=== PATIENT | female | born 1960 | race African-American/Black ===

== ENCOUNTER 2021-01-29 16:08 | Inpatient (IN) ==
[2021-01-29 20:22] LABS: Basophils % 0.5 % (0.0-0.8); Eosinophils % 0.3 % (0.00-10.9); Hematocrit 41.5 VOL% (35.7-47.0); Hemoglobin 13.2 GM/DL (12.0-16.0); Immature Granulocytes % 0.3 %; Immature Granulocytes Absolute 0.02 #; Lymphocytes % 15.6 % (21.3-54.2); Mean Corpuscular HGB Conc 31.8 GM/DL (32-36); Mean Corpuscular Volume 86.1 FL (87-102); Mean Platelet Volume 10.7 FL (9.6-12.0); Monocytes % 5.9 % (1.7-12.7); Neutrophils % 77.4 % (38.7-73.9); Platelet Count 350 T/CUMM (130-400); Red Blood Count 4.82 MC/CUMM (3.8-5.5); Red Cell Distribution Width 14.9 % (9.3-17.3); White Blood Count 6.2 T/CUMM (4-12)
[2021-01-29 20:33] LABS: PT Patient Result 11.6 SECS (10.5-12.0)
[2021-01-29] MEDS ORDERED: FUROSEMIDE 40 MG/4 ML VIAL IV STA (20:43)
[2021-01-29 20:44] LABS: Albumin 2.9 G/DL (3.4-5.0); Bilirubin,Total 0.7 MG/DL (0.20-1.00); Calcium 9.2 MG/DL (8.5-10.1); Osmolality,Calculated 301.1 MOS/KG (273-304); Potassium 4.7 MMOL/L (3.5-5.1); Total Protein 5.6 G/DL (6.4-8.2)
[2021-01-29] MEDS ORDERED: FUROSEMIDE 100 MG/10 ML VIAL ONE (20:44)
[2021-01-29] MEDS ORDERED: hydrALAZINE 20 MG/1 ML VIAL ONE (21:41)
[2021-01-29] MEDS ORDERED: hydrALAZINE 20 MG/1 ML VIAL IV STA (21:42)
[2021-01-29] MEDS ORDERED: POTASSIUM CHLORIDE RIDER 10 MEQ/100 ML PREMIX IV PRN (22:51)
[2021-01-29] MEDS ORDERED: MAGNESIUM SULF RIDER 2 GM/50 ML PREMIX IV PRN (22:51)
[2021-01-29] MEDS ORDERED: GLUCAGON 1 MG VIAL IM PRN (22:51)
[2021-01-29] MEDS ORDERED: SIMETHICONE CHEW 125 MG TABLET PO PRN (22:51)
[2021-01-29] MEDS ORDERED: MAGNESIUM SULF RIDER 4 GM/100 ML PREMIX IV PRN (22:51)
[2021-01-29] MEDS ORDERED: ONDANSETRON 4 MG/2 ML VIAL IV PRN (22:51)
[2021-01-29] MEDS ORDERED: POTASSIUM CHLORIDE RIDER 20 MEQ/100 ML PREMIX IV PRN (22:51)
[2021-01-29] MEDS ORDERED: ACETAMINOPHEN 325 MG TABLET PO PRN (22:51)
[2021-01-29] MEDS ORDERED: hydrALAZINE 20 MG/1 ML VIAL IV PRN (22:51)
[2021-01-29] MEDS ORDERED: ENOXAPARIN 40 MG/0.4 ML SYRINGE SUBCUT SCH (23:00)
[2021-01-29] MEDS ORDERED: DEXTROSE 50% 25 GM/50 ML SYRINGE IV PRN (23:17)
[2021-01-30] MEDS: LOSARTAN 25 MG TABLET PO SCH ×3 (02:57→21:36)
[2021-01-30] MEDS: carvediloL 3.125 MG TABLET PO SCH ×3 (02:57→21:36)
[2021-01-30 06:04] LABS: Basophils % 0.3 % (0.0-0.8); Eosinophils % 0.2 % (0.00-10.9); Hematocrit 39.5 VOL% (35.7-47.0); Hemoglobin 12.8 GM/DL (12.0-16.0); Immature Granulocytes % 0.5 %; Immature Granulocytes Absolute 0.03 #; Lymphocytes # 1.2 10*3/uL (1.4-4.0); Lymphocytes % 17.8 % (21.3-54.2); Mean Corpuscular HGB Conc 32.4 GM/DL (32-36); Mean Corpuscular Volume 84.9 FL (87-102); Mean Platelet Volume 10.7 FL (9.6-12.0); Monocytes % 5.8 % (1.7-12.7); Neutrophils % 75.4 % (38.7-73.9); Platelet Count 306 T/CUMM (130-400); Red Blood Count 4.65 MC/CUMM (3.8-5.5); Red Cell Distribution Width 14.8 % (9.3-17.3); White Blood Count 6.6 T/CUMM (4-12)
[2021-01-30 06:32] LABS: Albumin 2.7 G/DL (3.4-5.0); Bilirubin,Total 0.8 MG/DL (0.20-1.00); Calcium 8.3 MG/DL (8.5-10.1); Potassium 3.6 MMOL/L (3.5-5.1); Risk Ratio 2.9; Thyroid Stimulating Hormone 1.13 uIU/ml (0.358-3.74); Total Protein 5.3 G/DL (6.4-8.2); VLDL Cholesterol 11.2 MG/DL
[2021-01-30] MEDS ORDERED: ASPIRIN CHEW 81 MG TABLET PO ONE (06:39)
[2021-01-30 07:19] LABS: Hepatitis B Core IgM Quant 0.15 Index; Hepatitis B Surface Ag Quant < 0.10 Index; Hepatitis B Surface Ag Result Non-Reactive (NonReactive); Hepatitis C Virus Ab Quant < 0.02 Index; Hepatitis C Virus Ab Result Non-Reactive (NonReactive)
[2021-01-30] MEDS: INSULIN REGULAR 100 UNIT/ML SUBCUT SCH ×4 (07:49→21:39)
[2021-01-30] MEDS ORDERED: ASPIRIN 325 MG TABLET ONE (08:12)
[2021-01-30] MEDS: FUROSEMIDE 40 MG/4 ML VIAL IV SCH ×2 (08:21→16:46)
[2021-01-30] MEDS ORDERED: MAGNESIUM SULF RIDER 4 GM/100 ML PREMIX IV PRN (08:31)
[2021-01-30] MEDS ORDERED: MAGNESIUM SULF RIDER 2 GM/50 ML PREMIX IV PRN (08:31)
[2021-01-30] MEDS ORDERED: lisinopriL 2.5 MG TABLET PO SCH (09:00)
[2021-01-30] MEDS: PANTOPRAZOLE 40 MG TABLET PO SCH (09:09)
[2021-01-30 09:25] LABS: Bilirubin,Urine Negative (Negative); Blood, Urine Negative (Negative); Glucose,Urine (UA) >=500 mg/dL (Negative); Ketones,Urine 5 mg/dL (Negative); Mucus,Urine Occasional /LPF (Occasional); Nitrite,Urine Negative (Negative); Protein,Urine Negative; RBC,Urine 1 /HPF (0-4); Urine Appearance CLEAR (Clear); Urine Color Yellow (Yellow); Urine Specific Gravity 1.011 (1.001-1.035); Urine Urobilinogen < 2.0 EU/DL (<2.0)
[2021-01-30] MEDS ORDERED: DEXTROSE 50% 25 GM/50 ML SYRINGE IV PRN (10:58)
[2021-01-30 12:00] LABS: CKMB % 3.2 %
[2021-01-30 12:14] LABS: High Sensitive Troponin I* 3869.8 ng/L (0-54)
[2021-01-30] MEDS: ENOXAPARIN 60 MG/0.6 ML SYRINGE SUBCUT SCH (12:27)
[2021-01-30 14:18] LABS: High Sensitive Troponin I* 4059.2 ng/L (0-54)
[2021-01-30] MEDS: INSULIN GLARGINE 100 UNIT/ML SUBCUT SCH (21:39)
[2021-01-31] MEDS: ENOXAPARIN 60 MG/0.6 ML SYRINGE SUBCUT SCH ×2 (00:43→11:56)
[2021-01-31 05:51] LABS: % Iron Saturation 13.1 % (18-50)
[2021-01-31 05:53] LABS: Albumin 2.3 G/DL (3.4-5.0); Bilirubin,Total 2.8 MG/DL (0.20-1.00); Calcium 8.7 MG/DL (8.5-10.1); Potassium 3.2 MMOL/L (3.5-5.1); Total Protein 5.2 G/DL (6.4-8.2)
[2021-01-31 05:54] LABS: Albumin 2.3 G/DL (3.4-5.0); Bilirubin,Direct 0.21 MG/DL (0.0-0.20); Bilirubin,Indirect 0.9 MG/DL (0.0-1.0); Bilirubin,Total 1.1 MG/DL (0.20-1.00); Total Protein 5.3 G/DL (6.4-8.2)
[2021-01-31] MEDS ORDERED: DEXTROSE 50% 25 GM/50 ML SYRINGE IV PRN (06:30)
[2021-01-31] MEDS ORDERED: MAGNESIUM SULF RIDER 2 GM/50 ML PREMIX IV ONE (07:24)
[2021-01-31] MEDS ORDERED: POTASSIUM CHLORIDE 20 MEQ TABLET PO ONE (07:27)
[2021-01-31] MEDS: INSULIN REGULAR 100 UNIT/ML SUBCUT SCH ×4 (07:43→21:53)
[2021-01-31] MEDS: ASPIRIN EC 325 MG TABLET PO SCH (08:50)
[2021-01-31] MEDS: PANTOPRAZOLE 40 MG TABLET PO SCH (08:50)
[2021-01-31] MEDS: carvediloL 3.125 MG TABLET PO SCH ×2 (08:51→21:53)
[2021-01-31] MEDS: LOSARTAN 25 MG TABLET PO SCH ×2 (08:51→21:53)
[2021-01-31] MEDS: FUROSEMIDE 40 MG/4 ML VIAL IV SCH ×2 (08:59→16:59)
[2021-02-01] MEDS: ENOXAPARIN 60 MG/0.6 ML SYRINGE SUBCUT SCH (00:56)
[2021-02-01] MEDS: INSULIN GLARGINE 100 UNIT/ML SUBCUT SCH ×2 (00:58→21:03)
[2021-02-01 05:36] LABS: Basophils % 0.4 % (0.0-0.8); Eosinophils # 0.3 10*3/uL (0.0-0.87); Eosinophils % 3.6 % (0.00-10.9); Hematocrit 41.4 VOL% (35.7-47.0); Hemoglobin 13.4 GM/DL (12.0-16.0); Immature Granulocytes % 0.3 %; Immature Granulocytes Absolute 0.02 #; Lymphocytes # 1.5 10*3/uL (1.4-4.0); Lymphocytes % 20.1 % (21.3-54.2); Mean Corpuscular HGB Conc 32.4 GM/DL (32-36); Mean Corpuscular Volume 84.8 FL (87-102); Mean Platelet Volume 10.2 FL (9.6-12.0); Monocytes % 10.4 % (1.7-12.7); Neutrophils % 65.2 % (38.7-73.9); Platelet Count 349 T/CUMM (130-400); Red Blood Count 4.88 MC/CUMM (3.8-5.5); Red Cell Distribution Width 14.4 % (9.3-17.3); White Blood Count 7.2 T/CUMM (4-12)
[2021-02-01 05:59] LABS: Calcium 8.2 MG/DL (8.5-10.1); Osmolality,Calculated 281.3 MOS/KG (273-304)
[2021-02-01 06:03] LABS: Albumin 2.3 G/DL (3.4-5.0); Bilirubin,Direct 0.13 MG/DL (0.0-0.20); Bilirubin,Indirect 1.7 MG/DL (0.0-1.0); Bilirubin,Total 1.8 MG/DL (0.20-1.00); Total Protein 5.2 G/DL (6.4-8.2)
[2021-02-01] MEDS: INSULIN REGULAR 100 UNIT/ML SUBCUT SCH ×4 (07:42→21:03)
[2021-02-01] MEDS ORDERED: POTASSIUM CHLORIDE 20 MEQ TABLET PO ONE (07:58)
[2021-02-01] MEDS ORDERED: diphenhydrAMINE CAP 25 MG CAPSULE PO ONE (09:09)
[2021-02-01] MEDS ORDERED: DIAZEPAM 5 MG TABLET PO ONE (09:09)
[2021-02-01] MEDS ORDERED: LIDOCAINE 1% 20 ML VIAL ONE (09:14)
[2021-02-01] MEDS ORDERED: diphenhydrAMINE CAP 25 MG CAPSULE ONE (09:18)
[2021-02-01] MEDS ORDERED: DIAZEPAM 5 MG TABLET ONE (09:18)
[2021-02-01] MEDS: PANTOPRAZOLE 40 MG TABLET PO SCH (09:20)
[2021-02-01] MEDS: LOSARTAN 25 MG TABLET PO SCH (09:22)
[2021-02-01] MEDS: carvediloL 3.125 MG TABLET PO SCH ×2 (09:22→21:02)
[2021-02-01] MEDS: ASPIRIN EC 325 MG TABLET PO SCH (09:22)
[2021-02-01] MEDS: MULTIVITAMIN (CENTRUM) TABLET PO SCH (09:22)
[2021-02-01] MEDS ORDERED: VERAPAMIL 5 MG/2 ML VIAL ONE (09:24)
[2021-02-01] MEDS ORDERED: MIDAZOLAM 2 MG/2 ML VIAL ONE (09:24)
[2021-02-01] MEDS ORDERED: NITROGLYCERIN DRIP 50 MG/250 ML BOTTLE IV ONE (09:24)
[2021-02-01] MEDS ORDERED: HYDROmorphone 2 MG/1 ML VIAL ONE (09:24)
[2021-02-01] MEDS ORDERED: SODIUM CHLORIDE 0.9% 1,000 ML IV SCH (09:30)
[2021-02-01] MEDS: FUROSEMIDE 40 MG/4 ML VIAL IV SCH (11:36)
[2021-02-01] MEDS: ENOXAPARIN 30 MG/0.3 ML SYRINGE SUBCUT SCH (11:42)
[2021-02-01] MEDS: FUROSEMIDE 40 MG TABLET PO SCH (16:36)
[2021-02-01] MEDS: SACUBITRIL/VALSARTAN 49-51 MG TABLET PO SCH (21:02)
[2021-02-02 05:02] LABS: Basophils % 0.3 % (0.0-0.8); Eosinophils # 0.2 10*3/uL (0.0-0.87); Eosinophils % 3.3 % (0.00-10.9); Hemoglobin 13.3 GM/DL (12.0-16.0); Immature Granulocytes % 0.3 %; Immature Granulocytes Absolute 0.02 #; Lymphocytes # 1.4 10*3/uL (1.4-4.0); Mean Corpuscular HGB Conc 31.7 GM/DL (32-36); Mean Platelet Volume 10.6 FL (9.6-12.0); Monocytes % 12.4 % (1.7-12.7); Neutrophils % 64.7 % (38.7-73.9); Platelet Count 370 T/CUMM (130-400); Red Blood Count 4.94 MC/CUMM (3.8-5.5); Red Cell Distribution Width 14.6 % (9.3-17.3); White Blood Count 7.3 T/CUMM (4-12)
[2021-02-02 05:28] LABS: Calcium 8.4 MG/DL (8.5-10.1); Osmolality,Calculated 281.3 MOS/KG (273-304); Potassium 3.3 MMOL/L (3.5-5.1)
[2021-02-02 05:31] LABS: Albumin 2.3 G/DL (3.4-5.0); Bilirubin,Direct 0.15 MG/DL (0.0-0.20); Bilirubin,Indirect 0.3 MG/DL (0.0-1.0); Bilirubin,Total 0.4 MG/DL (0.20-1.00); Total Protein 5.5 G/DL (6.4-8.2)
[2021-02-02] MEDS ORDERED: POTASSIUM CHLORIDE 20 MEQ TABLET PO ONE (07:13)
[2021-02-02] MEDS: INSULIN REGULAR 100 UNIT/ML SUBCUT SCH ×2 (07:56→12:16)
[2021-02-02] MEDS: carvediloL 3.125 MG TABLET PO SCH (08:11)
[2021-02-02] MEDS: PANTOPRAZOLE 40 MG TABLET PO SCH (08:11)
[2021-02-02] MEDS: SACUBITRIL/VALSARTAN 49-51 MG TABLET PO SCH (08:11)
[2021-02-02] MEDS: FUROSEMIDE 40 MG TABLET PO SCH (08:11)
[2021-02-02] MEDS: MULTIVITAMIN (CENTRUM) TABLET PO SCH (08:11)
[2021-02-02 08:30] VITALS: BP 117/83
[2021-02-02] MEDS ORDERED: SPIRONOLACTONE 25 MG TABLET PO SCH (09:00)
[2021-02-02] MEDS: ENOXAPARIN 30 MG/0.3 ML SYRINGE SUBCUT SCH (12:16)
== END 2021-02-02 13:05 | DRG 286 ==
LOC: N.EDINP 16:08 → N.ED 16:08 → SUATTDRO 22:51 → OBSVTOIN 22:51 → SUATTDRO 01-30 00:02 → N.EDINP 01-30 16:26 → N.TELES 01-30 16:29
PROVIDERS: ADMIT Internal Medicine; ATTEND Hospitalist
PROC: CLCCHCL (ICD-10-PCS; 2021-02-01 11:15)